=== PATIENT | male | born 2000 | race Caucasian/White ===

== ENCOUNTER 2021-02-04 17:03 | Emergency (ER) | payer OTHER ==
[~2021-02-04] VITALS: Ht 177.8 cm; Wt 160.1 kg
[2021-02-04 17:16] VITALS: BP 144/85
--- NOTE | 2021-02-04 17:22 | NUR ---
Patient ambulated to bed 11 with steady/even gait.
--- NOTE | 2021-02-04 17:26 | NUR ---
20 Y/O M. BIB self from home c/o cyst to sacral region. Pt diagnosed with pilonidal cyst 2017, receives routine I&D. States unable to make appointment to remove cyst d/t COVID. 01/12, sharp/constant, non-radiating. Last I&D early 2020. Denies fever, chills. Denies medication prior to arrival. HR 109. BED IS AT LOWEST SETTING. SIDE RAILS X1. CALL LIGHT WITHIN REACH. PMH/Sx/Meds: recurring pilonidal cyst NKA
--- NOTE | 2021-02-04 17:28 | NUR ---
Shobha bowen in [facility] - 02/04/21 at [address] SWAIN AT [facility].
--- NOTE | 2021-02-04 17:28 | NUR ---
BROOK AVILEZ AT BEDSIDE
[2021-02-04] MEDS ORDERED: KETOROLAC 30 MG/ML VIAL IM SCH (17:45)
--- NOTE | 2021-02-04 17:58 | NUR ---
Dr. Ochoa is evaluating patient at bedside
[2021-02-04] MEDS ORDERED: CEPH-588 PO (18:24)
[2021-02-04] MEDS ORDERED: IBUP-2213 PO (18:24)
[2021-02-04 18:38] VITALS: BP 144/85
--- NOTE | 2021-02-04 18:38 | NUR ---
Patient discharged with v/s stable. Written and verbal after care instructions given and explained. Patient alert, oriented and verbalized understanding of instructions. Ambulatory with steady gait. All questions addressed prior to discharge. ID band removed. Patient advised to follow up with PMD. Rx of CEPHALEXIN AND IBUPROFEN given. Patient educated on indication of medication including possible reaction and side effects. Opportunity to ask questions provided and answered.
== END 2021-02-04 18:38 | disposition home or self-care (01) ==
LOC: MED 17:03
DX: L03.90 Cellulitis, unspecified (principal); R03.0 Elevated blood-pressure reading, without diagnosis of hypertension; Z79.899 Other long term (current) drug therapy
CPT/HCPCS: 96372; 99283; J1885